=== PATIENT | male | born 1970 | race Two or more races ===

== ENCOUNTER 2024-10-29 08:55 | Day surgery (SDC) | payer OTHER, SELFPAY ==
[2024-10-28 14:21] VITALS: BMI 23.7
[2024-10-29 09:30] VITALS: BP 139/93; PULSE 63; RESP 18; TEMP 36.1; O2SAT 99; BMI 22.6
[2024-10-29 11:12] VITALS: BP 134/88; PULSE 65; RESP 12; O2SAT 96
[2024-10-29] MEDS: DiphenhydrAMINE INJ 50 MG/ML VIAL 25 MG IV (11:14)
[2024-10-29] MEDS: fentaNYL CIT INJ 50 mCg/ML AMP 2ML (ASD USE ONLY) IV (11:14)
[2024-10-29 11:17] VITALS: BP 126/80; PULSE 73; RESP 13; O2SAT 94
[2024-10-29] MEDS: MIDAZOLAM INJ 1 MG/ML VIAL 2 ML (ASD USE ONLY) 2 MG IV (11:18)
[2024-10-29] MEDS: ONDANSETRON INJ 2 MG/ML INJ 2 ML 4 MG IV (11:21)
[2024-10-29 11:27] VITALS: BP 141/95; PULSE 75; RESP 11; TEMP 37.1; O2SAT 97
--- NOTE | 2024-10-29 13:16 | SUR.PHASEII ---
1127: Pt was received for recovery. Report from Nathaniel CONTRERAS. Pt sleepy. Easily aroused with eye opening then will drift back to sleep. Resp even, unlabored. VS stable. No c/o pain, discomfort. 1153: Pt more awake, alert. VS stable. Denies pain. Sitting up tolerating po fluid with no difficulty swallowing and no n/v. 1210: Pt fully awake, oriented x3. Pt was assisted to restroom. Ambulation steady. Pt and stated understanding of discharge instructions. Pt discharged from [facility] in stable condition.
== END 2024-10-29 12:10 | disposition home or self-care (01) ==
PROVIDERS: PCP Physician Assistant; Referring Provider Specialist; Visit Provider Specialist
PROC: 0DBE8ZX Excision of Large Intestine, Via Natural or Artificial Opening Endoscopic, Diagnostic (ICD-10-PCS; CPT 45380; principal; 2024-10-29 11:30)
DX: K64.8 Other hemorrhoids (principal)
CPT/HCPCS: 46221; A4649; J1200; J2250; J2405; J3010